=== PATIENT | female | born 1945 | race Caucasian/White ===

== ENCOUNTER 2018-03-05 21:46 | Inpatient (IN) | payer OTHER ==
[~2018-03-05] VITALS: Ht 165.1 cm; Wt 68.9 kg
--- NOTE | 2018-03-05 22:18 | ED GI/GU/ABDOMINAL COMPLAINT ---
History of Present Illness General Chief Complaint: Abdominal Pain/Flank Pain Stated Complaint: ABD PAIN Source: patient Exam Limitations: clinical condition, poor historian Vital Signs & Intake/Output Vital Signs & Intake/Output Vital Signs Date Time Temp Pulse Resp B/P B/P Pulse O2 O2 Flow FiO2 Mean Ox Delivery Rate 03/07 1133 98.1 89 20 102/60 92 Room Air 03/07 0800 97 Room Air 03/07 0600 97.5 97 18 118/68 91 03/07 0200 97.7 86 18 108/56 93 ED Intake and Output 03/07 0000 03/06 1200 Intake Total 2600 185 Output Total 650 850 Balance 1950 -665 Intake, IV 2000 125 Intake, Oral 600 60 Number 7 0 Bowel Movements Output, Urine 650 850 Patient 152 lb 152 lb Weight Weight Bed scale Measurement Method Allergies Coded Allergies: Penicillins (UNKNOWN 12/10/15) naproxen (DIFFICULTY BREATHING 12/10/15) shellfish derived (DIFFICULTY BREATHING 12/10/15) Triage Note: PT TO ED C/O PAIN THAT GOES UP LEFT SIDE OF ABDOMEN AND ACROSS UPPER ABDOMEN. STATES HAS HAD LEFT SIDE ABD PAIN FOR MONTHS BUT PAIN HAS BEEN MUCH WORSE FOR 9 HRS. 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 DENIES ANY OTHER PAST MEDICAL HISTORY. "I HAD A CT LAST WEEK AND I WANTED HIM TO GET MY ABDOMEN BUT HE WOULDN'T DO IT" +N/V. LAST BM WAS TODAY AND WAS NORMAL. DENIES UTI S/S. PT VERY UNCOMFORTABLE ON STRETCHER. Triage Nurses Notes Reviewed? yes ? N Is pt currently ? No Onset: Abrupt Duration: hour(s):, constant Timing: single episode today Quality/Severity: moderate, sharpness, severe Location: generalized abdomen Radiation: no radiation Activities at Onset: none Prior Abdominal Problems: none No Modifying Factors: none HPI: 72-year-old female comes into the emergency room for further evaluation of generalized lower abdominal pain has been going on since this afternoon around 1 PM. Pain is sharp. Continuous. Some associated vomiting. Comes in for further evaluation. Patient is a poor historian. Offering little information. (Bruno KEENE,David) Reconcile Medications Fluticasone/Salmeterol (Advair 250-50 Diskus) 250 MCG-50 MCG/DOSE BLST.W.DEV 1 PUF INH BID shortness of breath (Reported) Oxycodone HCl 5 MG TABLET 1 TAB PO BIDP PRN pain (Reported) (Flakita FAUSTIN,Derek Bruner) Past History Travel History Traveled to [place] past 21 day No Medical History Any Pertinent Medical History? none Cancer(s): breast cancer, lung cancer Surgical History Surgical History: TUMORS REMOVED, OVARIAN CYSTS REMOVAL Psychosocial History What is your primary language Chadian Tobacco Use: Current Daily Use Daily Tobacco Use Amount/Type: => 5 Cigarettes daily ETOH Use: denies use Illicit Drug Use: denies illicit drug use Family History Hx Contributory? No (David Billings) Surgical History Surgical History: TUMORS REMOVED, OVARIAN CYSTS REMOVAL (Flakita FAUSTIN,Derek Bruner) Review of Systems Review of Systems Constitutional: Reports: no symptoms. EENTM: Reports: no symptoms. Respiratory: Reports: no symptoms. Cardiovascular: Reports: no symptoms. GI: Reports: see HPI. Genitourinary: Reports: no symptoms. Musculoskeletal: Reports: no symptoms. Skin: Reports: no symptoms. Neurological/Psychological: Reports: no symptoms. Hematologic/Endocrine: Reports: no symptoms. Immunologic/Allergic: Reports: no symptoms. All Other Systems: Reviewed and Negative (David Billings) Physical Exam Physical Exam General Appearance: well developed/nourished, alert, awake, moderate distress Head: atraumatic Eyes: Bilateral: normal appearance. Ears, Nose, Throat, Mouth: hearing grossly normal, moist mucous membrane Neck: normal inspection Respiratory: normal breath sounds, no respiratory distress Cardiovascular: regular rate/rhythm Gastrointestinal: soft, tenderness Back: normal inspection Extremities: normal range of motion Neurologic/Psych: awake, alert, oriented x 3 Skin: intact, normal color Core Measures ACS in differential dx? No Sepsis Present: No Sepsis Focused Exam Completed? No (David Billings) Progress Differential Diagnosis: appendicitis, biliary colic, bowel obstruction, diverticulitis, gastritis, ischemic bowel, peptic ulcer, PUD/GERD, perforated viscous, SBO, threatened AB Plan of Care: Orders Procedure Date/time Status Low Fiber Diet 03/07 L Active Discharge Patient 03/07 UNK Active Laboratory Tests 03/07/18 0810: Anion Gap 8, Estimated GFR > 60, BUN/Creatinine Ratio 13.8, CBC w Diff NO MAN DIFF REQ, RBC 4.69, MCV 88.6, MCH 30.3, MCHC 34.2, RDW 13.8, MPV 8.9, Gran % 83.1 H, Lymphocytes % 9.8 L, Monocytes % 6.0, Eosinophils % 1.0, Basophils % 0.1, Absolute Granulocytes 8.0 H, Absolute Lymphocytes 0.9 L, Absolute Monocytes 0.6, Absolute Eosinophils 0.1, Absolute Basophils 0 Diagnostic Imaging: Viewed by Me: CT Scan. Discussed w/RAD: CT Scan. Initial ED EKG: normal sinus rhythm, rate (96) (Bruno KEENE,David) Radiology Impression: PATIENT: CARLOS CEDEÑO PRESENT AGE: 72 PATIENT ACCOUNT NO: [id number] : 46 LOCATION: [facility] ORDERING PHYSICIAN: David KEENE SERVICE DATE: 03/05/18 EXAM TYPE: CAT - CT ABD & PELVIS W IV CONTRAST EXAMINATION: CT ABDOMEN AND PELVIS WITH CONTRAST CLINICAL INFORMATION: Severe abdominal pain. History of right breast cancer. COMPARISON: PET/CT exam July 08, 2016. CT chest February 18, 2018 TECHNIQUE: Multidetector volumetric imaging was performed of the abdomen and pelvis following IV administration of 95 mL of Optiray 320 intravenous contrast. Sagittal and coronal reformatted images were obtained on the technologist's workstation. DLP: 335.24 mGy-cm FINDINGS: LUNG BASES: The visualized lung bases are unremarkable. LIVER, GALLBLADDER, AND BILIARY TREE: There is intrahepatic and extra hepatic bile duct dilatation as patient has had a prior cholecystectomy. Extra hepatic CBD measures 1.5 cm. This is unchanged since prior studies. There is no calcified stone in the bile ducts. No suspicious liver lesion. PANCREAS: Unremarkable. SPLEEN: Unremarkable. ADRENAL GLANDS: Unremarkable. KIDNEYS AND URETERS: The kidneys are normal in size, shape, and attenuation. No hydronephrosis, hydroureter, or calculi seen. No perinephric stranding. BLADDER: Unremarkable. GASTROINTESTINAL TRACT: There is diverticulosis of the colon without diverticulitis. There is dilatation of the small bowel loops of the proximal and mid abdomen. The distal small bowel loops are decompressed. Transition point in the low central pelvis. There is a subtle amount of edema in the mesenteric fat around the dilated bowel loops but no bowel wall thickening and no air in the bowel wall. There is no free air or evidence of perforation. The appendix is not seen. ABDOMINAL WALL: No significant hernia is appreciated. LYMPH NODES: Normal. VASCULAR: There is diffuse atherosclerotic vascular wall calcifications of aorta and iliac arteries without aneurysm. PELVIC VISCERA: The uterus is absent. There is no adnexal abnormality. OSSEOUS STRUCTURES: Degenerative spondylosis spine with multilevel disc height narrowing and endplate spurring and facet joint arthrosis. IMPRESSION: 1. Small bowel obstruction 2. Status post cholecystectomy with chronic dilatation of the CBD without calcified stone within the ducts. 3. Status post hysterectomy. DICTATED BY: Anselmo Torres MD DATE/TIME DICTATED:56 V BLOCK SAW OPERATOR:ABNER DATE/TIME TRANSCRIBED:03/06/1856 CONFIDENTIAL, DO NOT COPY WITHOUT APPROPRIATE AUTHORIZATION. <Electronically signed in Other Vendor System> SIGNED BY: Anselmo Torres MD 03/06/18 0109 (Flakita FAUSTIN,Derek Bruner) Departure Departure Condition: Stable Referrals: Last Glynn DO (PCP/Family) Departure Forms: Customer Survey General Discharge Information (David Billings) Departure Disposition: HOME OR SELF CARE Clinical Impression Primary Impression: Small bowel obstruction Admission Note Spoke With: Gibran Bellamy DO Documentation of Exam: Documentation of any treatments & extenuating circumstances including Concerns Regarding Discharge (functional status, medication knowledge or non-compliance, living conditions, etc.) that warrant an admission rather than observation: pt with sbo, merits iv fluids, bowel rest, consider surgical repair. PA/SENIOR DESIGNER Co-Sign Statement Statement: ED Attending supervision documentation- [x saw and evaluated the patient. I have also reviewed all the pertinent lab results and diagnostic results. I agree with the findings and the plan of care as documented in the PA's/SENIOR DESIGNER's documentation. 03/06/18, 3:20am... pt with sbo on ct scan... diminished distant bowel sounds with mild distension on exam.... no vomiting after supportive medications... pt merits admission iv fluids, bowel rest. [] I have reviewed the ED Record and agree with the PA's/SENIOR DESIGNER's documentation. [] Additions or exceptions (if any) to the PAs/SENIOR DESIGNER's note and plan are summarized below: [] (Flakita FAUSTIN,Derek Bruner) Promethazine HCl 12.5 MG Q6P PRN 03/06 0415 AC (Phenergen) 03/13 0414 Laboratory Tests 03/06/18 0110: Urinalysis LIGHT H, Urine Color YEL, Urine Clarity CLEAR, Urine pH 6.0, Ur Specific [place] 1.010, Urine Protein NEG, Urine Ketones NEG, Urine Nitrite NEG, Urine Bilirubin NEG, Urine Urobilinogen 0.2, Ur Leukocyte Esterase NEG, Ur Microscopic SEDIMENT EXAMINED, Urine RBC 1-3, Urine WBC 1-3 H, Ur Epithelial Cells RARE, Urine Hemoglobin TRACE-LYSED, Urine Glucose NEG 03/06/18 0058: Lactic Acid Cancelled 03/05/18 2245: Anion Gap 15, Estimated GFR > 60, BUN/Creatinine Ratio 21.3, Glucose 137 H, Lactic Acid 1.1, Calcium 10.0, Total Bilirubin 0.7, AST 14, ALT 24, Alkaline Phosphatase 85, Troponin I < 0.01, Total Protein 7.4, Albumin 4.5, Globulin 2.9, Albumin/Globulin Ratio 1.6, Amylase 66, Lipase 94, CBC w Diff NO MAN DIFF REQ, RBC 5.48 H, MCV 89.5, MCH 30.1, MCHC 33.6, RDW 13.7, MPV 8.8, Gran % 89.3 H, Lymphocytes % 5.6 L, Monocytes % 4.5, Eosinophils % 0.2, Basophils % 0.4, Absolute Granulocytes 12.7 H, Absolute Lymphocytes 0.8 L, Absolute Monocytes 0.6, Absolute Eosinophils 0, Absolute Basophils 0.1 Radiology Impression: PATIENT: CARLOS CEDEÑO PRESENT AGE: 72 PATIENT ACCOUNT NO: [id number] : 46 LOCATION: [facility] ORDERING PHYSICIAN: David KEENE SERVICE DATE: 03/05/18 EXAM TYPE: CAT - CT ABD & PELVIS W IV CONTRAST EXAMINATION: CT ABDOMEN AND PELVIS WITH CONTRAST CLINICAL INFORMATION: Severe abdominal pain. History of right breast cancer. COMPARISON: PET/CT exam July 08, 2016. CT chest February 18, 2018 TECHNIQUE: Multidetector volumetric imaging was performed of the abdomen and pelvis following IV administration of 95 mL of Optiray 320 intravenous contrast. Sagittal and coronal reformatted images were obtained on the technologist's workstation. DLP: 335.24 mGy-cm FINDINGS: LUNG BASES: The visualized lung bases are unremarkable. LIVER, GALLBLADDER, AND BILIARY TREE: There is intrahepatic and extra hepatic bile duct dilatation as patient has had a prior cholecystectomy. Extra hepatic CBD measures 1.5 cm. This is unchanged since prior studies. There is no calcified stone in the bile ducts. No suspicious liver lesion. PANCREAS: Unremarkable. SPLEEN: Unremarkable. ADRENAL GLANDS: Unremarkable. KIDNEYS AND URETERS: The kidneys are normal in size, shape, and attenuation. No hydronephrosis, hydroureter, or calculi seen. No perinephric stranding. BLADDER: Unremarkable. GASTROINTESTINAL TRACT: There is diverticulosis of the colon without diverticulitis. There is dilatation of the small bowel loops of the proximal and mid abdomen. The distal small bowel loops are decompressed. Transition point in the low central pelvis. There is a subtle amount of edema in the mesenteric fat around the dilated bowel loops but no bowel wall thickening and no air in the bowel wall. There is no free air or evidence of perforation. The appendix is not seen. ABDOMINAL WALL: No significant hernia is appreciated. LYMPH NODES: Normal. VASCULAR: There is diffuse atherosclerotic vascular wall calcifications of aorta and iliac arteries without aneurysm. PELVIC VISCERA: The uterus is absent. There is no adnexal abnormality. OSSEOUS STRUCTURES: Degenerative spondylosis spine with multilevel disc height narrowing and endplate spurring and facet joint arthrosis.
[2018-03-05 23:10] LABS: ABSOLUTE BASOPHIL COUNT 0.1 /CUMM (0.0-0.2); ABSOLUTE EOSINOPHIL COUNT 0 /CUMM (0.0-0.7); ABSOLUTE GRANULOCYTE CT 12.7 /CUMM (1.4-6.5); ABSOLUTE LYMPH COUNT 0.8 /CUMM (1.2-3.4); ABSOLUTE MONOCYTE COUNT 0.6 /CUMM (0.10-0.60); BASOPHIL % 0.4 % (0.0-2.0); EOSINOPHIL % 0.2 % (0-5); HEMATOCRIT 49.1 % (37-47); MEAN CORPUSCULAR HGB 30.1 PG (27.0-31.0); MEAN CORPUSCULAR HGB CONC 33.6 G/DL (33.0-37.0); MEAN CORPUSCULAR VOLUME 89.5 FL (81.0-99.0); MEAN PLATELET VOLUME 8.8 FL (7.4-10.4); PLATELET COUNT 232 /CUMM (130-400); RBC DISTRIBUTION WIDTH 13.7 % (11.5-14.5); RED BLOOD CELL CT 5.48 /CUMM (4.20-5.40); WHITE BLOOD CELL COUNT 14.2 /CUMM (4.8-10.8)
[2018-03-05 23:31] LABS: GRANULOCYTE % 89.3 % (42.2-75.2)
--- NOTE | 2018-03-06 01:09 | CT SCAN REPORT ---
EXAMINATION: CT ABDOMEN AND PELVIS WITH CONTRAST CLINICAL INFORMATION: Severe abdominal pain. History of right breast cancer. COMPARISON: PET/CT exam July 08, 2016. CT chest February 18, 2018 TECHNIQUE: Multidetector volumetric imaging was performed of the abdomen and pelvis following IV administration of 95 mL of Optiray 320 intravenous contrast. Sagittal and coronal reformatted images were obtained on the technologist's workstation. DLP: 335.24 mGy-cm FINDINGS: LUNG BASES: The visualized lung bases are unremarkable. LIVER, GALLBLADDER, AND BILIARY TREE: There is intrahepatic and extra hepatic bile duct dilatation as patient has had a prior cholecystectomy. Extra hepatic CBD measures 1.5 cm. This is unchanged since prior studies. There is no calcified stone in the bile ducts. No suspicious liver lesion. PANCREAS: Unremarkable. SPLEEN: Unremarkable. ADRENAL GLANDS: Unremarkable. KIDNEYS AND URETERS: The kidneys are normal in size, shape, and attenuation. No hydronephrosis, hydroureter, or calculi seen. No perinephric stranding. BLADDER: Unremarkable. GASTROINTESTINAL TRACT: There is diverticulosis of the colon without diverticulitis. There is dilatation of the small bowel loops of the proximal and mid abdomen. The distal small bowel loops are decompressed. Transition point in the low central pelvis. There is a subtle amount of edema in the mesenteric fat around the dilated bowel loops but no bowel wall thickening and no air in the bowel wall. There is no free air or evidence of perforation. The appendix is not seen. ABDOMINAL WALL: No significant hernia is appreciated. LYMPH NODES: Normal. VASCULAR: There is diffuse atherosclerotic vascular wall calcifications of aorta and iliac arteries without aneurysm. PELVIC VISCERA: The uterus is absent. There is no adnexal abnormality. OSSEOUS STRUCTURES: Degenerative spondylosis spine with multilevel disc height narrowing and endplate spurring and facet joint arthrosis. IMPRESSION: 1. Small bowel obstruction 2. Status post cholecystectomy with chronic dilatation of the CBD without calcified stone within the ducts. 3. Status post hysterectomy.
--- NOTE | 2018-03-06 06:35 | Admission Core Measures ---
Acute Coronary Syndrome (CM) ACS Core Measures Acute Coronary Syndrome Diagnosis No Congestive Heart Failure (NEW) CHF Core Measures Congestive Heart Failure Diagnosis No Cerebrovascular Accident (NEW) CVA Core Measures CVA/TIA Diagnosis No Venous Thromboembolism VTE Core Omar (View Protocol) VTE Risk Factors Age>40 No Mechanical VTE Prophylaxis d/t N/A MechProphylax Ordered No VTE Pharm Prophylaxis d/t NA PharmProphylax ordered Problem List As ranked by this Provider includes Assessment & Plan 1. Small bowel obstruction
[2018-03-06 06:41] VITALS: BP 127/73
--- NOTE | 2018-03-06 06:43 | History & Physical Pre-Op ---
Edgar Davidson 03/06/18 0636: General Information and HPI MD Statement: I have seen and personally examined CARLOS CEDEÑO and documented this H&P. The patient is a 72 year old F who presented with a patient stated chief complaint of [abdominal pain]. Source of Information: patient, family, old records Exam Limitations: no limitations History of Present Illness: 72-year-old female presents to the ER with severe abdominal pain nausea and vomiting. Symptoms started earlier in the day and became gradually more severe. She states that she frequently gets severe bouts of abdominal pain which usually subsides on its own however this episode did not improve on its own. She does not seek medical attention for her abdominal complaints. Patient has had history of multiple abdominal surgeries, cholecystectomy, hysterectomy, as well as for separate exploratory laparotomies for abdominal masses in the . She also believes she has a remote history of a small bowel obstruction with a lysis of adhesion although patient is unsure. Her last bowel movement was earlier in the day, she states she passed a small soft stool, has not had a bowel movement or passed any gas since then. Her lower pelvic region is where the pain started, it radiates up and off to the right upper quadrant and is associated with abdominal distention. She vomited several times. Upon arrival at the ER she received IV fluids, pain medication and IV antiemetics and her symptoms have significantly improved. A CT scan was performed which showed small bowel obstruction and surgery was consulted for further management and treatment. Of note, she has a history of breast cancer 2 and finished chemotherapy a few months ago. She is still a pack per day smoker Allergies/Medications Allergies: Coded Allergies: Penicillins (UNKNOWN 12/10/15) naproxen (DIFFICULTY BREATHING 12/10/15) shellfish derived (DIFFICULTY BREATHING 12/10/15) Past History Medical History Blood Transfusion Hx: Yes Neurological: NONE EENT: cataracts Cardiovascular: NONE Respiratory: COPD, pneumonia Gastrointestinal: CDIFF 2000, multiple abd surgeries for "abdominal masses" Hepatic: NONE Renal: STRESS INCONTINENCE Musculoskeletal: osteoarthritis Psychiatric: NONE Endocrine: NONE Blood Disorders: NONE Cancer(s): breast cancer, lung cancer OTHER SPORTS OFFICIAL/Reproductive: HYSTERECTOMY Isolation History: Standard Surgical History Pertinent Surgical History: cholecystectomy, hysterectomy, masectomy, TUMORS REMOVED, OVARIAN CYSTS REMOVAL L BREAST LUMPECTOMY X2 HYSTERECTOMY CHOLYCYSTECTOMY Past Family/Social History Psychosocial History Where Do You Live? Home Services at Home None Smoking Status: Current Everyday Smoker ETOH Use: denies use Illicit Drug Use: denies illicit drug use Functional Ability ADLs Independent: dressing, eating, toileting, bathing. Review of Systems Review of Systems: Review of systems: See HPI, all other systems negative. Constitutional: No chills fever or weight loss HEENT: No visual changes no sore throat no congestion Cardiovascular: No chest pain ,palpitation , orthopnea or ankle swelling Skin: No jaundice no rashes Respiratory: No dyspnea cough sputum or hemoptysis GI: See HPI : No dysuria no hematuria Musclulo skeletal: No back pain no neck pain, Neurologic: No numbness no confusion Psych: No stress anxiety or depression,. Heme/endocrine: No bruising no bleeding no polyuria or polydipsia Immunology: No splenectomy or history of AIDS Exam & Diagnostic Data Last 24 Hrs of Vital Signs/I&O Vital Signs Date Time Temp Pulse Resp B/P B/P Pulse O2 O2 Flow FiO2 Mean Ox Delivery Rate 03/06 0349 97.2 97 20 129/73 95 Room Air 03/06 0003 97.0 88 20 138/65 99 Room Air 03/05 2316 96 Room Air 03/05 2206 97.4 107 20 136/79 93 Room Air Intake & Output 03/06 0800 03/06 0000 03/05 1600 Intake Total 1000 Output Total 200 Balance -200 1000 Intake, IV 1000 Output, Urine 200 Patient 152 lb 151 lb Weight Weight Bed scale Reported by Patient Measurement Method Physical Exam: Well-developed well-nourished person in no acute distress HEENT: Dry mucous membranes, extraocular motion intact, no nystagmus. Pupils equally round and reactive to light. Nose is atraumatic. Neck: Supple, no lymphadenopathy, normal range of motion without pain or tenderness Back: Nontender, Cardiovascular: Regular rate and rhythms no murmurs, normal JVP Respiratory: Chest nontender. No respiratory distress. Faint wheezing and crackles noted throughout lungs, otherwise clear Abdomen: Soft, mildly tender throughout the lower abdomen, mild distention, hypoactive bowel sounds, mild tympany, well-healed laparotomy scar Extremity: No edema, no calf tenderness to palpation, normal and equal pulses. Neuro: Alert oriented x3, motor sensory normal, Skin: No appreciable rash on exposed skin, skin is warm and dry. Psych: Mood and affect is normal, memory and judgment is normal. Last 24 Hrs of Labs/Shane: Laboratory Tests 03/06/18 0110: Urinalysis LIGHT H, Urine Color YEL, Urine Clarity CLEAR, Urine pH 6.0, Ur Specific [place] 1.010, Urine Protein NEG, Urine Ketones NEG, Urine Nitrite NEG, Urine Bilirubin NEG, Urine Urobilinogen 0.2, Ur Leukocyte Esterase NEG, Ur Microscopic SEDIMENT EXAMINED, Urine RBC 1-3, Urine WBC 1-3 H, Ur Epithelial Cells RARE, Urine Hemoglobin TRACE-LYSED, Urine Glucose NEG 03/06/18 0058: Lactic Acid Cancelled 03/05/18 2245: Anion Gap 15, Estimated GFR > 60, BUN/Creatinine Ratio 21.3, Glucose 137 H, Lactic Acid 1.1, Calcium 10.0, Total Bilirubin 0.7, AST 14, ALT 24, Alkaline Phosphatase 85, Troponin I < 0.01, Total Protein 7.4, Albumin 4.5, Globulin 2.9, Albumin/Globulin Ratio 1.6, Amylase 66, Lipase 94, CBC w Diff NO MAN DIFF REQ, RBC 5.48 H, MCV 89.5, MCH 30.1, MCHC 33.6, RDW 13.7, MPV 8.8, Gran % 89.3 H, Lymphocytes % 5.6 L, Monocytes % 4.5, Eosinophils % 0.2, Basophils % 0.4, Absolute Granulocytes 12.7 H, Absolute Lymphocytes 0.8 L, Absolute Monocytes 0.6, Absolute Eosinophils 0, Absolute Basophils 0.1 Diagnostic Data Other Results PATIENT: CARLOS CEDEÑO PRESENT AGE: 72 PATIENT ACCOUNT NO: [id number] : 46 LOCATION: [facility] ORDERING PHYSICIAN: David KEENE SERVICE DATE: 03/05/18 EXAM TYPE: CAT - CT ABD & PELVIS W IV CONTRAST EXAMINATION: CT ABDOMEN AND PELVIS WITH CONTRAST CLINICAL INFORMATION: Severe abdominal pain. History of right breast cancer. COMPARISON: PET/CT exam July 08, 2016. CT chest February 18, 2018 TECHNIQUE: Multidetector volumetric imaging was performed of the abdomen and pelvis following IV administration of 95 mL of Optiray 320 intravenous contrast. Sagittal and coronal reformatted images were obtained on the technologist's workstation. DLP: 335.24 mGy-cm FINDINGS: LUNG BASES: The visualized lung bases are unremarkable. LIVER, GALLBLADDER, AND BILIARY TREE: There is intrahepatic and extra hepatic bile duct dilatation as patient has had a prior cholecystectomy. Extra hepatic CBD measures 1.5 cm. This is unchanged since prior studies. There is no calcified stone in the bile ducts. No suspicious liver lesion. PANCREAS: Unremarkable. SPLEEN: Unremarkable. ADRENAL GLANDS: Unremarkable. KIDNEYS AND URETERS: The kidneys are normal in size, shape, and attenuation. No hydronephrosis, hydroureter, or calculi seen. No perinephric stranding. BLADDER: Unremarkable. GASTROINTESTINAL TRACT: There is diverticulosis of the colon without diverticulitis. There is dilatation of the small bowel loops of the proximal and mid abdomen. The distal small bowel loops are decompressed. Transition point in the low central pelvis. There is a subtle amount of edema in the mesenteric fat around the dilated bowel loops but no bowel wall thickening and no air in the bowel wall. There is no free air or evidence of perforation. The appendix is not seen. ABDOMINAL WALL: No significant hernia is appreciated. LYMPH NODES: Normal. VASCULAR: There is diffuse atherosclerotic vascular wall calcifications of aorta and iliac arteries without aneurysm. PELVIC VISCERA: The uterus is absent. There is no adnexal abnormality. OSSEOUS STRUCTURES: Degenerative spondylosis spine with multilevel disc height narrowing and endplate spurring and facet joint arthrosis. IMPRESSION: 1. Small bowel obstruction 2. Status post cholecystectomy with chronic dilatation of the CBD without calcified stone within the ducts. 3. Status post hysterectomy. DICTATED BY: Anselmo Torres MD DATE/TIME DICTATED:03/06/1856 FIRST AID INSTRUCTOR:ABNER DATE/TIME TRANSCRIBED:03/06/1856 Assessment/Plan Assessment/Plan: 72-year-old female with multiple abdominal surgeries in the past, he with a small bowel obstruction She requires admission to the hospital, bowel rest, IV fluids, IV antiemetics, IV pain medication as needed. She is significantly better than when she arrived and we will hold off on putting an NG tube in at this time. We will encourage ambulation, incentive spirometer as she has COPD and is a smoker, give her nicotine patch, continue her usual home meds except for aspirin in case she requires surgical intervention. The case was discussed with Dr. Bellamy who is on-call this evening and she will be admitted to the surgical service under him however she has had surgery in the past by Dr. Davis and would like to be under Dr. Davis's care. Patient and family understand and agree with plan As Ranked By This Provider Problem List: 1. Small bowel obstruction Gibran Bellamy DO 03/06/18 1612: Attending MD Review Statement Attending Statement Attending MD Statement: examined this patient, discuss w/resident/PA/BROADCAST OPERATIONS DIRECTOR, agreed w/resident/PA/BROADCAST OPERATIONS DIRECTOR, reviewed EMR data (avail), reviewed images Attending Assessment/Plan: Patient seen and examined, agree with above. Abdominal pain/N/V yesterday, currently feeling better with multiple BMs s/p gastrograffin, no further abdominal pain. AVSS. UO ok. Abd-soft NT/ND. Labs ok. CT scan - SBO. Patient with multiple Bms and appears to be resolving, F/U AXR today, if continues to do well will advance diet.
[2018-03-06 13:57] VITALS: BP 108/62
--- NOTE | 2018-03-06 18:02 | RADIOLOGY REPORT ---
EXAMINATION: XR ABDOMEN MULTIPLE VIEWS CLINICAL INDICATION: 72-year-old female presented with severe abdominal pain. History of right-sided breast carcinoma. CT of the abdomen and pelvis done yesterday showed features of small-bowel obstruction. Followup radiographs of the abdomen and pelvis are requested. COMPARISON: CT of the abdomen and pelvis done on 03/06/2018. TECHNIQUE: Supine and upright frontal views of the abdomen and pelvis, total of 3 images. The patient apparently was given 120 mL of Gastrografin 6 hours prior to the images. FINDINGS: Intraluminal contrast is visualized within the large bowel starting from the level of the cecum through the rectum. Previous CT-detected distended small-bowel loops are, however, still noted within the left mid abdomen in the paraspinal region extending into the left iliac fossa. No evidence of any free intraperitoneal air. IMPRESSION: 1. Intraluminal contrast is seen from cecum through the rectum within the large bowel. 2. CT detected prominent small-bowel loops are still visualized within the left hemiabdomen extending into the pelvis in the paraspinal region.
--- NOTE | 2018-03-06 18:54 | Patient Discharge Instructions ---
Discharge Instructions General Discharge Information You were seen/treated for: Small bowel obstruction You had these procedures: None Watch for these problems: Increased pain, distenstion, nausea, vomiting Diet Continue normal diet: No Recommended Diet: Low Residue Activity Full Activity/No Limits: Yes Acute Coronary Syndrome Inclusion Criteria At DC or during hospital stay patient has or had the following: ACS DIAGNOSIS No Discharge Core Measures Meds if any: Prescribed or Continued at Discharge Meds if any: NOT Prescribed or Continued at Discharge Congestive Heart Failure Inclusion Criteria At DC or during hospital stay patient has or had the following: CHF DIAGNOSIS No Discharge Core Measures Meds if any: Prescribed or Continued at Discharge Meds if any: NOT Prescribed or Continued at Discharge Cerebrovascular accident Inclusion Criteria At DC or during hospital stay patient has or had the following: CVA/TIA Diagnosis No Discharge Core Measures Meds if any: Prescribed or Continued at Discharge Meds if any: NOT Prescribed or Continued at Discharge Venous thromboembolism Inclusion Criteria VTE Diagnosis No VTE Type NONE VTE Confirmed by (Test) NONE Discharge Core Measures - Per Current guidelines, there needs to be overlap - treatment for the first 5 days of Warfarin therapy. - If discharged on Warfarin prior to 5 days of - overlap therapy, the patient will need to be - assessed for post discharge needs including - *Post discharge parental anticoagulation - *Warfarin and/or parental anticoagulation education - *Follow up date to check INR post discharge At least 5 days overlap therapy as Inpatient No Meds if any: Prescribed or Continued at Discharge Note: Overlap Therapy is Warfarin and Anticoagulant Meds if any: NOT Prescribed or Continued at Discharge
[2018-03-06 21:55] VITALS: BP 106/62
[2018-03-07 02:00] VITALS: BP 108/56
[2018-03-07 06:00] VITALS: BP 118/68
[2018-03-07] MEDS ORDERED: OXYCODONE HCL5 M1 PO (08:25)
[2018-03-07] MEDS ORDERED: ADVAIR 250-501 EACH INH (08:25)
[2018-03-07 09:10] LABS: ABSOLUTE BASOPHIL COUNT 0 /CUMM (0.0-0.2); ABSOLUTE EOSINOPHIL COUNT 0.1 /CUMM (0.0-0.7); ABSOLUTE MONOCYTE COUNT 0.6 /CUMM (0.10-0.60); MEAN CORPUSCULAR VOLUME 88.6 FL (81.0-99.0)
[2018-03-07 09:28] LABS: ABSOLUTE LYMPH COUNT 0.9 /CUMM (1.2-3.4); BASOPHIL % 0.1 % (0.0-2.0); GRANULOCYTE % 83.1 % (42.2-75.2); MEAN CORPUSCULAR HGB 30.3 PG (27.0-31.0); MEAN CORPUSCULAR HGB CONC 34.2 G/DL (33.0-37.0); MEAN PLATELET VOLUME 8.9 FL (7.4-10.4); PLATELET COUNT 174 /CUMM (130-400); RBC DISTRIBUTION WIDTH 13.8 % (11.5-14.5); RED BLOOD CELL CT 4.69 /CUMM (4.20-5.40); WHITE BLOOD CELL COUNT 9.6 /CUMM (4.8-10.8)
[2018-03-07 09:32] LABS: HEMATOCRIT 41.6 % (37-47)
--- NOTE | 2018-03-07 10:31 | PN- General Surgery ---
See Addendum Subjective Subjective: Awake, alert Up in bed eating full liquid diet Has had numerous loose bm's overnight, now getting to be more solid Pain is gone, denies nausea, tolerating food without any problems Objective Vital Signs and I&Os Vital Signs Date Time Temp Pulse Resp B/P B/P Pulse O2 O2 Flow FiO2 Mean Ox Delivery Rate 03/07 0600 97.5 97 18 118/68 91 03/07 0200 97.7 86 18 108/56 93 03/06 2155 98.2 86 18 106/62 92 03/06 1357 97.9 91 18 10862 93 Room Air Intake & Output 03/07 1600 03/07 0800 03/07 0000 03/06 1600 03/06 0800 03/06 0000 Intake Total 120 1480 2414 542 3445 Output Total 950 550 Balance 120 1480 170 -365 1000 Intake, IV 1000 1319 378 6717 Intake, Oral 120 480 120 60 Number 2 3 4 0 Bowel Movements Output, Urine 950 550 Patient 152 lb 152 lb 151 lb Weight Weight Bed scale Reported by Patient Measurement Method Physical Exam: general: alert and oriented times three abdomen: soft, good bs, nontender even to deep palpation throughout all quadrants, non distended eXt: warm, no edema, no calf tenderness Assessment/Plan Assessment/Plan 72yo female admitted with sbo - has a history of recurrent sbo following multiple abdominal surgeries, also with breast cancer sbo seems to be resolved discussed with Dr Bellamy - plan to advance to lrd at lunch DC if tolerates Core Measures Venous Thromboembolism VTE Risk Factors Age>40 No Mechanical VTE Prophylaxis d/t N/A MechProphylax Ordered No VTE Pharm Prophylaxis d/t NA PharmProphylax ordered
--- NOTE | 2018-03-07 10:33 | Surg Short-stay <48hrs Dis Sum ---
Visit Information Visit Dates Admission Date: 03/06/18 Discharge Date: 03/07/2018 Surgical Short Stay DC Summary Admission Diagnosis: sbo Final Diagnosis: same Procedure(s): None Summary/Significant Findings: Pt was admitted with recurrent sbo. She did not require an ngt. She was given IV fluid hydration. On the day of admission she began having loose bowel movements. She had numerous bm's and on hospital day 2 she was advanced to a full liquid followed by a low residue diet which she tolerated without pain or nausea. She was able to be discharged home. Condition at Discharge: good Discharge Disposition: home or self care Discharge instructions provided to patient/family: Yes Post discharge follow-up plan: Calll Dr Bellamy if needed for further abdominal pain or increased nausea Copies to: Gibran Bellamy DO
[2018-03-07 11:33] VITALS: BP 102/60
== END 2018-03-07 14:17 | DRG 390 ==
LOC: ERH 21:46 → ERHI 03-06 03:28 → ENRESERV 03-06 04:35 → 2NB 03-06 05:15 → ENPENDDIS 03-07 08:30 → 2NB 03-07 14:17
PROVIDERS: Physician Assistant Medical; Physician Assistant Surgical
DX: K56.609 Unspecified intestinal obstruction, unspecified as to partial versus complete obstruction (principal); J44.9 Chronic obstructive pulmonary disease, unspecified; F17.200 Nicotine dependence, unspecified, uncomplicated; Z85.3 Personal history of malignant neoplasm of breast; Z90.49 Acquired absence of other specified parts of digestive tract; Z90.710 Acquired absence of both cervix and uterus; Z92.21 Personal history of antineoplastic chemotherapy; Z88.0 Allergy status to penicillin; Z88.8 Allergy status to other drugs, medicaments and biological substances; Z91.013 Allergy to seafood; Z85.118 Personal history of other malignant neoplasm of bronchus and lung
CPT/HCPCS: 2NBSP; 36415; 74021; 74177; 81001; 82436; 93005; 93010; 96374; 96375; J1200; J1644; J2405; J2765; J2930; J3490; J7042